=== PATIENT | female | born 1975 | race Caucasian/White ===

== ENCOUNTER 2017-07-01 20:48 | Emergency (ER) | payer MEDICARE, MEDICAID ==
[~2017-07-01] VITALS: Ht 170.2 cm; Wt 79.8 kg
[~2017-07-01 20:48] MED LIST: ACHD5005 PO; ALBU17AE23 PO; BUDE6HFA IH; BUPR300T PO; DIAZ10TA PO; EST1.25T PO; ESTR0.5T PO; FLUT1DIS26 INH; HYDR-3812 PO; HYDR1TAB PO; KETO-22 PO; LEVO125T PO; LEVO137T17 PO; LIDO20SO20 MT; NAPR-243 PO; NITR-65 PO; OXYC-272 PO; OXYC1TAB17; OXYC60TA9 PO; PRD20T PO; PRED20TA PO; PREG75CA PO; PREMARIN; RT-COMBINH IH; ZLP5T PO; ZOLP5TAB6 PO
[2017-07-01 21:47] LABS: BASOPHILS # (AUTO) 0.1 10^3/uL (0.0-0.1); BASOPHILS % (AUTO) 1 % (0-10); EOSINOPHILS # (AUTO) 0.6 10^3/uL (0.0-0.3); EOSINOPHILS % (AUTO) 5 % (0-10); LYMPHOCYTES # (AUTO) 4.6 X 10^3 (1.0-4.0); LYMPHOCYTES % (AUTO) 41 % (12-44); MEAN CORPUSCULAR HEMOGLOBIN 31 PG (25-34); MEAN CORPUSCULAR HGB CONC 33 G/DL (32-36); MEAN CORPUSCULAR VOLUME 93 FL (80-99); MEAN PLATELET VOLUME 10.8 FL (7.4-10.4); MONOCYTES # (AUTO) 0.6 X 10^3 (0.0-1.0); MONOCYTES % (AUTO) 6 % (0-12); NEUTROPHILS # (AUTO) 5.4 X 10^3 (1.8-7.8); NEUTROPHILS % (AUTO) 48 % (42-75); PLATELET COUNT 204 10^3/uL (130-400); RED BLOOD COUNT 4.33 10^6/uL (4.35-5.85); RED CELL DISTRIBUTION WIDTH 13.5 % (10.0-14.5); WHITE BLOOD COUNT 11.2 10^3/uL (4.3-11.0)
--- NOTE | 2017-07-01 22:02 | Diagnostic Imaging Report ---
INDICATION: Stroke like symptoms. FINDINGS: The heart size, mediastinal configuration, and pulmonary vascularity are within normal limits. There is no pleural effusion, pneumothorax, or pneumonia. The osseous structures are unremarkable. IMPRESSION: No acute cardiopulmonary abnormality. Dictated by: Dictated on workstation # [id number]
--- NOTE | 2017-07-01 22:02 | Diagnostic Imaging Report ---
INDICATION: Sudden onset of difficulty swallowing FINDINGS: The ventricles and sulci are within normal limits. There is no hydrocephalus or cerebral edema. There is no midline shift or mass effect. There is no intracranial mass, hemorrhage, or extra-axial fluid collection. The visualized paranasal sinuses and mastoid air cells are clear. There are no regional areas of decreased attenuation appreciated to suggest an acute CVA. IMPRESSION: No acute intracranial abnormality. Dictated by: Dictated on workstation # [id number]
[2017-07-01 22:04] LABS: ALANINE AMINOTRANSFERASE 15 U/L (0-55); ALBUMIN 4.1 GM/DL (3.2-4.5); ANION GAP 10 MMOL/L (5-14); ASPARTATE AMINO TRANSFERASE 17 U/L (5-34); BILIRUBIN,TOTAL 0.4 MG/DL (0.1-1.0); BLOOD UREA NITROGEN 15 MG/DL (7-18); BUN/CREATININE RATIO 18; CALCIUM 9.6 MG/DL (8.5-10.1); CARBON DIOXIDE 29 MMOL/L (21-32); CHLORIDE 100 MMOL/L (98-107); CREATININE SERUM 0.84 MG/DL (0.60-1.30); GFR ESTIMATED > 60; GLUCOSE 86 MG/DL (70-105); POTASSIUM 4.3 MMOL/L (3.6-5.0); SODIUM 139 MMOL/L (135-145); TOTAL PROTEIN 7.2 GM/DL (6.4-8.2)
[2017-07-01 22:10] LABS: TROPONIN I < 0.30 NG/ML (<0.30)
[2017-07-01 22:11] LABS: INR 0.9 (0.8-1.4)
[2017-07-01 22:22] LABS: BILIRUBIN,URINE NEGATIVE (NEGATIVE); KETONES,URINE NEGATIVE (NEGATIVE); LEUKOCYTE ESTERASE ,URINE 3+ (NEGATIVE); NITRITE,URINE NEGATIVE (NEGATIVE); PH,URINE 7 (5-9); PROTEIN,URINE NEGATIVE (NEGATIVE); UROBILINOGEN,URINE NORMAL (NORMAL)
[2017-07-01 22:30] LABS: WBC,URINE 25-50 /HPF
--- NOTE | 2017-07-01 23:14 | ED Neurological Problem ---
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 reports she feels like her brain "tore." Nursing Sepsis Screen: No Definite Risk Source: patient Exam Limitations: no limitations History of Present Illness Time seen by provider: 21:35 Initial Comments Patient presents to the emergency room by private vehicle with complaints of dyspnea, difficulty talking, or difficulty swallowing when she woke in the car while driving here from [place]. She also describes a burning sensation in the left upper chest and in her head. She fell asleep sometime around 18:00 which would be her last known well time. She generally feels weak and a little dizzy. She states he feels like she has to remind herself to breathe. She reports recently being treated for urinary tract infection and bacterial vaginosis. However, she did not complete the course as she left her medications at someone else's house. She has no apparent neurologic deficits at this time. Fingerstick blood sugar is 85. Stroke activation was aged. Allergies and Home Medications Allergies Coded Allergies: chlorzoxazone (Unverified Allergy, Mild, [facility] Home Medications Bupropion Hcl 300 Mg Tab.sr.24h, 300 MG PO DAILY, (Reported) Cephalexin 500 Mg Capsule, 500 MG PO QID, #28 Prescribed by: CATALINO CHAMBERS on 07/01/178 Hydrocodone/Acetaminophen 1 Each Tablet, 1 EACH PO Q4H PRN for PAIN, #10 Prescribed by: CATALINO CHAMBERS on 01/31/162001 Ipratropium/Albuterol Sulfate 14.7 Gm Aer.w.adap, 2 PUFF IH BID, (Reported) Levothyroxine Sodium 137 Mcg Tablet, 137 MCG PO DAILY, (Reported) Metronidazole 500 Mg Tablet, 500 MG PO BID, #14 Prescribed by: CATALINO CHAMBERS on 07/01/178 Prednisone 20 Mg Tab, 20 MG PO DAILY, #5 Prescribed by: CATALINO CHAMBERS on 01/31/162001 Constitutional: see HPI, weakness Eyes: No Symptoms Reported Ears, Nose, Mouth, Throat: see HPI Respiratory: see HPI Cardiovascular: no symptoms reported Gastrointestinal: see HPI Genitourinary: see HPI : No Musculoskeletal: no symptoms reported Skin: no symptoms reported Psychiatric/Neurological: See HPI Endocrine: No Symptoms Reported Past Bexlsje-Nhcqgm-Atuovw Hx Patient Social History Alcohol Use: Occasionally Uses Recreational Drug Use: No Smoking Status: Current Everyday Smoker Type Used: Cigarettes Recent Foreign Travel: No Contact w/Someone Who Travel: No Recent Infectious Disease Expo: No Recent Hopitalizations: No Physical Abuse: No Sexual Abuse: No Mistreated: No Fear: No Immunizations Up To Date Date of Pneumonia Vaccine: December 23, 2008 Date of Influenza Vaccine: Apr 28, 2008 Surgeries History of Surgeries: Yes (BILAT ULNAR SX, BACK SX, TONGUE MASS REMOVED, Lipoma resection) Surgeries: Gallbladder, Hysterectomy, Orthopedic Respiratory History of Respiratory Disorde: Yes (COPD; HX. 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 Gastrointestinal History of Gastrointestinal Di: Yes (ELEVATED LIVER ENZYME) Musculoskeletal History of Musculoskeletal Dis: Yes (ARTHRITIS; ARMS/BACK AND JOINTS; Madelungs deformity) Musculoskeletal Disorders: Chronic Back Pain Endocrine History of Endocrine Disorders: Yes (THYROID) Endocrine Disorders: Hypothyroidsim Cancer History of Cancer: No Psychosocial History of Psychiatric Problem: Yes Behavioral Health Disorders: Depression Suicide Risk Score: 0 Integumentary History of Skin or Integumenta: No Blood Transfusions History of Blood Disorders: No Family Medical History Significant Family History: No Pertinent Family Hx Physical Exam Vital Signs Vital Sign - Last 12Hours 07/01/17 07/01/17 21:24 23:33 Temp 97.5 Pulse 73 Resp 16 B/P (MAP) 119/54 (75) Pulse Ox 98 O2 Delivery Non Rebreather Capillary Refill : Less Than 3 Seconds General Appearance: WD/WN, no apparent distress HEENT: PERRL/EOMI, normal ENT inspection, pharynx normal Neck: normal inspection Respiratory: lungs clear, normal breath sounds, no respiratory distress, no accessory muscle use, other (left upper chest tenderness to palpation) Cardiovascular: regular rate, rhythm, no edema Gastrointestinal: normal bowel sounds, non tender, soft Extremities: normal inspection, no pedal edema, no calf tenderness 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, no motor/sensory deficits, alert, oriented x 3, other (mildly anxious) Crainal Nerves: normal hearing, normal speech, PERRL Coordination/Gait: normal finger to nose, normal gait Motor/Sensory: no motor deficit, no sensory deficit, no pronator drift Skin: normal color, warm/dry Stroke NIH Stroke Scale Assessment Level of Consciousness: 0=Alert (0), Level of Consciousness-Questions: 0= Answers both month/age (0), LOC Commands: 0=Performs both tasks (0), Visual Villal[place]: 0=No visual loss (0), Facial Movement (Facial Paresis): 0=Normal symmetrical mnt (0), Motor Function-Arms Right: 0=No drift (0), Motor Function- Arms Left: 0=No drift (0), Motor Function-Legs Right: 0=No drift (0), Motor Function-Legs Left: 0=No drift (0), Limb Ataxia: 0=Absent (0), Sensory: 0=Normal :no loss (0), Best Language: 0=No aphasia (0), Dysarthria: 0=Normal (0), Extinction & Inattention: 0=No abnormality (0), Total: 0 Progress/Results/Core Measures Results/Orders Lab Results Laboratory Tests Test 07/01/17 21:40 07/01/17 21:46 07/01/17 22:13 Range/Units White Blood Count 11.2 H 4.3-11.0 10^3/uL Red Blood Count 4.33 L 4.35-5.85 10^6/uL Hemoglobin 13.3 11.5-16.0 G/DL Hematocrit 40 35-52 % Mean Corpuscular Volume 93 80-99 FL Mean Corpuscular Hemoglobin 31 25-34 PG Mean Corpuscular Hemoglobin Concent 33 32-36 G/DL Red Cell Distribution Width 13.5 10.0-14.5 % Platelet Count 204 130-400 10^3/uL Mean Platelet Volume 10.8 H 7.4-10.4 FL Neutrophils (%) (Auto) 48 42-75 % Lymphocytes (%) (Auto) 41 12-44 % Monocytes (%) (Auto) 6 0-12 % Eosinophils (%) (Auto) 5 0-10 % Basophils (%) (Auto) 1 0-10 % Neutrophils # (Auto) 5.4 1.8-7.8 X 10^3 Lymphocytes # (Auto) 4.6 H 1.0-4.0 X 10^3 Monocytes # (Auto) 0.6 0.0-1.0 X 10^3 Eosinophils # (Auto) 0.6 H 0.0-0.3 10^3/uL Basophils # (Auto) 0.1 0.0-0.1 10^3/uL Prothrombin Time 12.0 L 12.2-14.7 SEC INR Comment 0.9 0.8-1.4 Activated Partial Thromboplast Time 28 24-35 SEC D-Dimer 0.27 0.00-0.49 UG/ML Sodium Level 139 135-145 MMOL/L Potassium Level 4.3 3.6-5.0 MMOL/L Chloride Level 100 98-107 MMOL/L Carbon Dioxide Level 29 21-32 MMOL/L Anion Gap 10 5-14 MMOL/L Blood Urea Nitrogen 15 7-18 MG/DL Creatinine 0.84 0.60-1.30 MG/DL Estimat Glomerular Filtration Rate > 60 BUN/Creatinine Ratio 18 Glucose Level 86 70-105 MG/DL Calcium Level 9.6 8.5-10.1 MG/DL Total Bilirubin 0.4 0.1-1.0 MG/DL Aspartate Amino Transf (AST/SGOT) 17 5-34 U/L Alanine Aminotransferase (ALT/SGPT) 15 0-55 U/L Alkaline Phosphatase 77 40-136 U/L Troponin I < 0.30 <0.30 NG/ML Total Protein 7.2 6.4-8.2 GM/DL Albumin 4.1 3.2-4.5 GM/DL Glucometer 85 70-110 MG/DL Urine Color YELLOW Urine Clarity CLEAR Urine pH 7 5-9 Urine Specific [place] 1.010 L 1.016-1.022 Urine Protein NEGATIVE NEGATIVE Urine Glucose (UA) NEGATIVE NEGATIVE Urine Ketones NEGATIVE NEGATIVE Urine Nitrite NEGATIVE NEGATIVE Urine Bilirubin NEGATIVE NEGATIVE Urine Urobilinogen NORMAL NORMAL MG/DL Urine Leukocyte Esterase 3+ H NEGATIVE Urine RBC (Auto) NEGATIVE NEGATIVE Urine RBC NONE /HPF Urine WBC 25-50 H /HPF Urine Squamous Epithelial Cells 2-5 /HPF Urine Crystals NONE /LPF Urine Bacteria FEW H /HPF Urine Casts NONE /LPF Urine Mucus NEGATIVE /LPF Urine Culture Indicated YES My Orders Orders - CATALINO RODRIGUEZ MD Cbc With Automated Diff (07/01/17 21:42) Protime With Inr (12/4/17 21:42) Partial Thromboplastin Time (07/01/17 21:42) Comprehensive Metabolic Panel (07/01/17 21:42) Fibrin Degradation Products (07/01/17 21:42) Troponin I (07/01/17 21:42) Ua Culture If Indicated (07/01/17 21:42) Chest 1 View, Ap/Pa Only (07/01/17 21:42) Ekg Tracing (07/01/17 21:42) Accucheck Stat ONCE (07/01/17 21:42) Saline Lock/Iv-Start (07/01/17 21:42) Saline Lock/Iv-Start (07/01/17 21:42) Vital Signs - Stroke Q15M (07/01/17 21:42) Ct Head Wo-R/O Stroke (07/01/17 21:42) O2 (07/01/17 21:42) Intake & Output 06,14,22 (07/01/17 21:42) Monitor-Rhythm Ecg Trace Only (07/01/17 21:42) Dysphagia Screening Tool (07/01/17 21:42) Urine Culture (07/01/17 22:13) Cephalexin Capsule (Keflex Capsule) (07/01/17 23:15) Metronidazole Tablet (Flagyl Tablet) (07/01/17 23:15) Medications Given in ED Current Medications Medications Dose Ordered Sig/Jaymie Route Start Time Stop Time Status Last Admin Dose Admin Cephalexin HCl 500 mg ONCE ONCE PO 07/01/17 23:15 07/01/17 23:16 DC 07/01/17 23:33 500 MG Metronidazole 500 mg ONCE ONCE PO 07/01/17 23:15 07/01/17 23:16 DC 07/01/17 23:33 500 MG Vital Signs/I&O Vital Sign - Last 12Hours 07/01/17 07/01/17 21:24 23:33 Temp 97.5 97.5 Pulse 73 74 Resp 16 16 B/P (MAP) 119/54 (75) Pulse Ox 98 O2 Delivery Non Rebreather Blood Pressure Mean: 75 Point of Care Testing Finger Stick Blood Glucose: 85 Progress Note : Progress Note Stroke activation was paged. Workup was unremarkable. Patient was ultimately dismissed home. Chest discomfort was atypical in nature and reproducible with palpation. Patient was found to have a urinary tract infection. She was given her first dose of Keflex area and she also requested to be treated again for bacterial vaginosis as she does have irritation. ECG Initial ECG Impression Date: Jul 01, 2017 Initial ECG Impression Time: 22:19 Initial ECG Rate: 66 Initial ECG Rhythm: Normal Sinus Initial ECG Intervals: Normal Initial ECG Impression: Normal Comment Normal sinus rhythm with no ST elevation or depression. No abnormal intervals or axis deviation. Diagnostic Imaging Diagonstic Imaging: CT Plain Films/CT/US/NM/MRI: head Comments NAME: THEO MENESES [facility] REC#: [id number] PT STATUS: REG ER : 1975 PHYSICIAN: CATALINO RODRIGUEZ MD ADMIT DATE: 07/01/17/ER Signed Date of Exam: 07/01/17 CT HEAD WO-R/O STROKE INDICATION: Sudden onset of difficulty swallowing FINDINGS: The ventricles and sulci are within normal limits. There is no hydrocephalus or cerebral edema. There is no midline shift or mass effect. There is no intracranial mass, hemorrhage, or extra-axial fluid collection. The visualized paranasal sinuses and mastoid air cells are clear. There are no regional areas of decreased attenuation appreciated to suggest an acute CVA. IMPRESSION: No acute intracranial abnormality. Dictated by: Dictated on workstation # [id number] Dict: 07/01/172157 Trans: 07/01/172211 Interpreted by: JENNY GUZMAN MD Electronically signed by: JENNY GUZMAN MD 07/01/172211 Diagonstic Imaging: Xray Plain Films/CT/US/NM/MRI: chest Comments NAME: THEO MENESES [facility] REC#: [id number] PT STATUS: REG ER : 1975 PHYSICIAN: CATALINO RODRIGUEZ MD ADMIT DATE: 07/01/17/ER Signed Date of Exam: 07/01/17 CHEST 1 VIEW, AP/PA ONLY INDICATION: Stroke like symptoms. FINDINGS: The heart size, mediastinal configuration, and pulmonary vascularity are within normal limits. There is no pleural effusion, pneumothorax, or pneumonia. The osseous structures are unremarkable. IMPRESSION: No acute cardiopulmonary abnormality. Dictated by: Dictated on workstation # [id number] Dict: 07/01/172158 Trans: 07/01/172211 Interpreted by: JENNY GUZMAN MD Electronically signed by: JENNY GUZMAN MD 07/01/172211 Departure Impression Impression: Primary Impression: Dizziness Additional Impressions: Chest wall pain Urinary tract infection Qualified Codes: N39.0 - Urinary tract infection, site not specified Disposition: HOME, SELF-CARE Condition: Improved Departure-Patient Inst. Decision time for Depature: 23:13 Referrals: NO,LOCAL PHYSICIAN (PCP/Family) Primary Care Physician Patient Instructions: Chest Pain That Is Not Caused by the Heart (DC), Urinary Tract Infection, Adult (DC) Add. Discharge Instructions: Drink plenty of clear liquids. Complete your antibiotics as prescribed. You may take ibuprofen up to 600 mg every 6 hours as needed for pain. Add Tylenol ( acetaminophen) up to 1000 mg every 6 hours as needed for additional pain relief. Follow-up with your primary care provider as soon as possible. Return to the emergency room if symptoms worsen. All discharge instructions reviewed with patient and/or family. Voiced understanding. Scripts Metronidazole (Flagyl) 500 Mg Tablet 500 MG PO BID, #14 TAB Prov: CATALINO RODRIGUEZ MD 07/01/17 Cephalexin (Keflex) 500 Mg Capsule 500 MG PO QID, #28 CAP Prov: CATALINO RODRIGUEZ MD 07/01/17 CATALINO RODRIGUEZ MD Jul 01, 2017 23:14
[2017-07-01] MEDS ORDERED: metroNIDAZOLE 500 MG (FLAGYL) TAB PO ONE (23:15)
[2017-07-01] MEDS ORDERED: CEPHALEXIN 250 MG (KEFLEX) CAP PO ONE (23:15)
[2017-07-01] MEDS ORDERED: METR500T PO (23:18)
[2017-07-01] MEDS ORDERED: CEPH-507 PO (23:18)
[2017-07-01 23:33] VITALS: BP 110/65
== END 2017-07-01 23:33 | disposition home or self-care (01) ==
LOC: EDUNIT# 20:48 → ER 20:49
DX: R07.89 Other chest pain (principal); R42 Dizziness and giddiness; N39.0 Urinary tract infection, site not specified; F32.9 Major depressive disorder, single episode, unspecified; E03.9 Hypothyroidism, unspecified; J44.9 Chronic obstructive pulmonary disease, unspecified; F17.210 Nicotine dependence, cigarettes, uncomplicated; Z90.710 Acquired absence of both cervix and uterus; Z87.891 Personal history of nicotine dependence
CPT/HCPCS: 36415; 70450; 71010; 80053; 81000; 82962; 84484; 85025; 85379; 85610; 85730; 87088; 93005; 93041